=== PATIENT | male | born 1995 | race African-American/Black ===

== ENCOUNTER 2017-06-10 12:00 | Emergency (ER) | payer SELFPAY ==
[~2017-06-10] VITALS: Ht 188 cm; Wt 111.6 kg
[2017-06-10 12:15] VITALS: BP 139/91
[2017-06-10 12:41] LABS: HEMATOCRIT 44.8 % (38.0-50.0); MCH 29.6 PG (29.0-34.0); MCHC 33.7 G/DL (30.0-36.0); MCV 87.8 FL (86-99); MEAN PLAT.VOLUME 11.9 uM^3 (9.0-12.4); PLATELET COUNT 205 K/uL (156-360); RBC DIS.WIDTH-CV 13.8 % (11.8-14.6); RBC DIS.WIDTH-SD 44.9 % (39-53); WHITE BLOOD COUNT 8.7 K/uL (4.1-10.2)
[2017-06-10 12:45] LABS: CHLORIDE 112 mEq/L (99-109); POTASSIUM 3.7 mEq/L (3.7-5.4); SODIUM 144 mEq/L (136-147)
[2017-06-10 12:47] LABS: GLUCOSE 117 mg/dL (70-99)
[2017-06-10 12:48] LABS: ANION GAP 9 MEQ/L (2-14)
[2017-06-10 12:51] LABS: GFR ESTIMATE (CALCULATED) > 59 mL/min/
[2017-06-10 12:52] LABS: UREA NITROGEN (BUN) 17 mg/dL (9-23)
[2017-06-10 13:03] LABS: ADD MIUA? NO; BILIRUBIN NEGATIVE; BLOOD NEGATIVE; COLOR YELLOW ((YELLOW)); GLUCOSE (STRIP) NEGATIVE; KETONES NEGATIVE; LEUKOCYTES NEGATIVE; NITRITE NEGATIVE; PROTEIN (STRIP) 30; SPECIFIC GRAVITY 1.031 (1.000-1.030); UCUL ADDED? NO; UROBILINOGEN 0.2 MG/DL (0.2-1.0)
== END 2017-06-10 15:14 | disposition left against medical advice (07) ==
LOC: EME 12:00
DX: R11.10 Vomiting, unspecified (principal); R10.9 Unspecified abdominal pain; Z53.21 Procedure and treatment not carried out due to patient leaving prior to being seen by health care provider
CPT/HCPCS: 80048; 81003; 85027